=== PATIENT | female | born 1965 | race Caucasian/White ===

== ENCOUNTER → 2017-07-20 | Outpatient (CLI) | payer OTHER ==
[~2017-07-20] MED LIST: ACYCLOVIR 400400 MG PO; BACTRIM DS TAB1 EACH PO; KEFLEX500 MG PO; NORCO 5-325 TA1 EACH PO
== END ==
LOC: ULTRA 09:19
DX: E06.9 Thyroiditis, unspecified (principal)

== ENCOUNTER → 2017-07-25 | Outpatient (CLI) | payer OTHER | LOC: RAD 03:02 | DX: Z12.31 Encounter for screening mammogram for malignant neoplasm of breast (principal); Z13.820 Encounter for screening for osteoporosis; M17.11 Unilateral primary osteoarthritis, right knee; M25.461 Effusion, right knee; Z78.0 Asymptomatic menopausal state ==

== ENCOUNTER → 2017-08-03 | Outpatient (CLI) | payer OTHER | LOC: CAT 08:06 | DX: N63.10 Unspecified lump in the right breast, unspecified quadrant (principal); R59.9 Enlarged lymph nodes, unspecified; R92.8 Other abnormal and inconclusive findings on diagnostic imaging of breast ==

== ENCOUNTER → 2018-09-27 | Outpatient (CLI) | payer OTHER | LOC: RAD 01:59 | DX: Z12.31 Encounter for screening mammogram for malignant neoplasm of breast (principal) ==

== ENCOUNTER → 2019-12-02 | Outpatient (CLI) | payer OTHER | LOC: BC 08:05 | PROVIDERS: ATTEND Family Medicine | DX: Z12.31 Encounter for screening mammogram for malignant neoplasm of breast (principal) ==

== ENCOUNTER → 2021-04-04 | Outpatient (CLI) | payer OTHER | LOC: BC 09:57 | PROVIDERS: ATTEND Family Medicine | DX: Z12.31 Encounter for screening mammogram for malignant neoplasm of breast (principal) ==

== ENCOUNTER → 2021-04-12 | Outpatient (CLI) | payer OTHER | LOC: ULTRA 14:26 → BC 14:26 | PROVIDERS: ATTEND Family Medicine | DX: R92.2 Inconclusive mammogram (principal); N63.10 Unspecified lump in the right breast, unspecified quadrant ==